=== PATIENT | male | born 1960 | race Caucasian/White ===

== ENCOUNTER 2025-03-21 20:28 | Emergency (ER) | payer OTHER, SELFPAY ==
[2025-03-21] VITALS (9 sets, daily range): BP systolic 111–167; BP diastolic 65–144; PULSE 82–96; TEMP 36.8; O2SAT 96–99; BMI 29.6
--- NOTE | 2025-03-21 20:41 | ECG_ITS ---
[facility] Test Date: 2025-03-21 Pat Name: OZZY DE JESUS Department: Room: - Gender: Male Soot Blower: : 1960 Requested By: [id number] Order Number: [id number] Reading MD: DENA NG M.D. Measurements Intervals [place] Rate: 84 P: 43 ND: 130 QRS: 19 QRSD: 88 T: 40 QT: 386 QTc: 427 Interpretive Statements 1100 Sinus rhythm 0104 ELECTRODE(S) DETACHED ... Repeat ECG is requested 9110 normal ECG No previous ECG available for comparison Electronically Signed On 03-23-2025 7:33:52 EDT by DENA NG M.D.
[2025-03-21] MEDS: 0.9 % SODIUM CHLORIDE 1,000 ML 100 ML IV (20:55)
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
[2025-03-21 21:20] LABS: Basophils Absolute Auto 0.1 10^3/uL (0.0-0.1); Basophils Percent Auto 1.5 % (0.2-2.0); Eosinophils Absolute Auto 0.1 10^3/uL (0.0-0.7); Eosinophils Percent Auto 1.3 % (0.9-7.0); Hematocrit 38.5 % (42.0-54.0); Hemoglobin 12.2 g/dL (14.0-18.0); Immature Granulocytes Abs Auto 0.04 10^3/uL (0.00-0.03); Immature Granulocytes Pct Auto 0.9 % (0.0-0.5); Lymphocytes Percent Auto 43.5 % (20.5-60.0); Mean Corpuscular HGB Conc 31.7 g/dL (29.9-35.2); Mean Corpuscular Hemoglobin 27.9 pg (25.9-34.0); Mean Corpuscular Volume 88.1 fL (80.0-94.0); Mean Platelet Volume 9.1 fL (9.5-13.5); Monocytes Absolute Auto 0.2 10^3/uL (0.3-0.8); Monocytes Percent Auto 4.8 % (1.7-12.0); Neutrophils Absolute Auto 2.2 10^3/uL (1.4-6.5); Platelet Count 205 10^3/uL (150-450); Red Blood Count 4.37 10^6/uL (4.70-6.10); Red Cell Distribution Width 17.7 % (11.0-15.0); White Blood Count 4.6 10^3/uL (4.0-11.0)
[2025-03-21 21:33] LABS: INR 1.12; Prothrombin Time 11.7 sec (9.0-11.6)
[2025-03-21 21:35] LABS: Anion Gap 23.8
[2025-03-21 21:36] LABS: Alanine Aminotransferase 78 U/L (16-63); Albumin Globulin Ratio 1.2; Alkaline Phosphatase 76 U/L (46-116); Aspartate Amino Transferase 133 U/L (15-37); BUN Creatinine Ratio 13.4; Bilirubin Total 0.8 mg/dL (0.2-1.0); Calcium 8.4 mg/dL (8.5-10.1); Carbon Dioxide 24.1 mmol/L (21.0-32.0); Chloride 96 mmol/L (98-107); Estimated GFR (African America >60 (>=60 mL/min/1.73m^2); Estimated GFR (Non-African Ame 57 (>=60 mL/min/1.73m^2); Ethanol 424 mg/dL; Globulin 3.4 g/dL; Glucose 75 mg/dL (74-106); Magnesium 1.4 mg/dL (1.8-2.4); Potassium 3.9 mmol/L (3.5-5.1); Sodium 140 mmol/L (136-145); Total Protein 7.4 g/dL (6.4-8.2)
--- NOTE | 2025-03-21 21:40 | PC.NURSE ---
states that she spoke with MD and they wish for him to be here overnight in order to sober up for admission into a rehab.
[2025-03-21] MEDS: POTASSIUM BICARBONATE/CIT 25 MEQ TABLET EFF 50 MEQ PO (22:42)
[2025-03-21] MEDS: MAGNESIUM SULFATE IN WATER 2 GM/50 ML PREMIX IV (22:42)
--- NOTE | 2025-03-22 00:35 | PC.NURSE ---
Ist L NS infused. Second L hung running per gravity. pt does not like the IV pump.
[2025-03-22 01:26] VITALS: BP 138/79; PULSE 78; O2SAT 97
[2025-03-22 03:00] VITALS: BP 138/89; PULSE 80; O2SAT 100
[2025-03-22] MEDS: ACETAMINOPHEN 500 MG TABLET 1000 MG PO (04:06)
[2025-03-22 06:15] LABS: Ethanol 208 mg/dL
== END 2025-03-22 07:01 | disposition home or self-care (01) ==
PROVIDERS: Physician Assistant; Emergency Provider Emergency Medicine; PCP Nurse Practitioner Family
DX: F10.129 Alcohol abuse with intoxication, unspecified (principal); Y90.7 Blood alcohol level of 200-239 mg/100 ml; E87.6 Hypokalemia; E83.42 Hypomagnesemia; Z91.81 History of falling
CPT/HCPCS: 36415; 80053; 80307; 80320; 81001; 83735; 85025; 85610; 93005; 96365; 99285; J3475